=== PATIENT | female | born 1985 | race Caucasian/White ===

== ENCOUNTER 2021-01-09 16:06 | Emergency (ER) | payer OTHER, SELFPAY ==
[2021-01-09 16:07] VITALS: BP 132/86; PULSE 113; RESP 22; TEMP 36.8; O2SAT 96; BMI 46.2
--- NOTE | 2021-01-09 16:48 | EDS_ITS ---
HPI History of Present Illness Chief Complaint: Shortness of Breath Informant: patient and spouse/S.O. Onset/Context/Timing Onset: Weeks Context: sudden Timing: Continuous and Waxes and wanes Quality: Positive for Dyspnea on exertion Current Severity: Mild Maximum Severity: Moderate Worsened by: Exertion and Coughing; Not Worsened By Lying flat Relieved by: Nothing Associated Symptoms cough, fever, sore throat, chills and sweats Chest Pain: Positive for Tightness Narrative Narrative: Patient is a 35-year-old woman with no significant past medical history who had a positive Covid test at outside facility. Symptoms started 7 days ago. She complains of headache, photophobia, sore throat, loss of taste and smell, nonproductive cough, dyspnea and dyspnea on exertion. She also reports dry heaves. She states she has not eaten anything in 3 days. She also reports diarrhea. She has not noted blood or mucus in the diarrhea. She reports decreased urine output. She does report orthostatic symptoms. She also reports myalgias now status. She denies joint swelling. PE Risk Factors: Negative for Cancer, OCP + Smoking + > 35, Prior DVT or PE, Recent immobilization, Recent surgery and Recent travel Prior similar symptoms: No Recent Illness/Hospitalization: No PFSH PFSH no medical history Home Medications hydrocodone-homatropine [Hycodan (with homatropine)] 5 ml PO Q6H PRN 2 Days #30 ml 01/09/21 [Rx Last Taken Unknown] ondansetron 4 mg PO Q8H PRN PRN #10 tab 01/09/21 [Rx Last Taken Unknown] Allergy/AdvReac Type Severity Reaction Status Date / Time acetaminophen [From Percocet] Allergy Other Verified 01/09/21 16:07 oxycodone [From Percocet] Allergy Other Verified 01/09/21 16:07 no surgical history Social History (Updated 01/09/21 @ 16:[address] Darryl Augustin MD) household members: spouse Smoking Status: Never smoker alcohol intake: current alcohol intake frequency: holidays/special occasions only substance use type: does not use ROS ROS ED Constitutional Constitutional ED: Reports chills, fever(s) and sweats Eyes Eyes: Denies blurry vision, change in vision or diplopia ENT ENT ED: Reports rhinorrhea and sore throat; Denies ear pain Cardiovascular Cardiovascular: Reports chest pain; Denies orthopnea, palpitations, paroxysmal nocturnal dyspnea or racing heartbeat Respiratory/Chest Respiratory/Chest: Reports cough, dyspnea and dyspnea on exertion; Denies orthopnea, paroxysmal nocturnal dyspnea or sputum Gastrointestinal Gastrointestinal: Reports diarrhea, nausea and vomiting; Denies abdominal pain, constipation or melena Genitourinary Genitourinary ED: Reports other Details: Decreased urine output ; Denies dysuria, hematuria or urinary frequency Musculoskeletal Musculoskeletal: Reports arthralgias, back pain, myalgias and neck pain Integumentary Denies rash Neurologic Neurologic: Reports headache(s) and weakness; Denies paresthesias Psychiatric Psychiatric: Denies anxiety or depression Hematologic/Lymphatic Hematologic/Lymphatic: Denies easy bleeding or easy bruising EXAM Physical Exam Const Vital Signs: 01/09/21 16:07 01/09/21 17:06 Temperature 98.2 F Temperature Source Temporal Pulse Rate 113 H Respiratory Rate 22 H Respiratory Effort Normal Non-Labored Respiratory Depth Normal Respiratory Pattern Normal Blood Pressure 132/86 H Blood Pressure Mean 101 Pulse Ox 96 Oxygen Delivery Method Room Air Room Air Positive well nourished, well developed and obese General Appearance ED: well developed Nutritional Appearance: obese HEENT Reports TM's clear and dry mucous membranes HEENT Narrative: Uvula midline. Posterior pharynx no erythema or exudate. atraumatic Tympanic Membrane ED: Yes TM's clear Mouth ED: Yes dry mucous membranes Mouth: dry mucous membranes Eyes PERRL and EOMs intact bilaterally General Eye ED: Negative for pale conjunctiva or scleral icterus Neck no lymphadenopathy, supple and no meningeal signs General: tenderness Resp normal respiratory effort and clear to auscultation bilaterally Cardio regular rate, S1 normal heart sound, S2 normal heart sound and no murmurs Rate: tachycardic GI non-tender, non-distended and no masses Auscultation: normoactive bowel sounds Palpation: soft Back/Spine no CVA tenderness and normal to inspection Extremity normal to inspection General Extremety ED: Negative for edema or tenderness General Extremity: Negative for edema Neuro oriented x3, CN's II-XII intact bilaterally and no sensory deficits noted Sensorium / Orientation: alert Motor Exam: strength 5/5 throughout Psych mental status grossly normal Thought Process: normal thought process Skin no wounds Lesions: no lesions Rashes: no rashes MDM MDM MDM Narrative Medical decision making narrative: Patient has symptoms due to Covid. Clinically she is dehydrated. 1 L of normal saline was ordered. Zofran was ordered for her dry heaves. Imodium for diarrhea. Hycodan for her persistent nonproductive cough. Because she has not anything the eat in 3 days and only sips of water over the last 3 days with large static symptoms basic metabolic panel was obtained to assess renal function and electrolytes H&H to rule out anemia since she has dyspnea on exertion. Believe this to be most likely due to her Covid infection I did speak with patient regarding monoclonal therapy. She is interested. I informed her that I would assess to make sure she qualifies and if so will discuss in further detail Patient was reassessed at Lab Data Attestation: I reviewed the patient's lab results. Lab results narrative: Patient is neutropenic and consistent with Covid infection. ALT and AST are 2 times normal, this is insignificant. Labs: Laboratory Results - last 24 hr 01/09/21 01/09/21 17:00 17:00 WBC 4.2 L RBC 5.48 H Hgb 15.3 H Hct 48.1 H MCV 87.8 MCH 27.9 MCHC 31.8 L RDW Std Deviation 43.7 RDW Coeff of Rose Mary 13.4 Plt Count 185 MPV 9.7 Immature Gran % (Auto) 0.500 Neut % (Auto) 62.9 Lymph % (Auto) 30.0 [place] % (Auto) 5.9 Eos % (Auto) 0.2 Baso % (Auto) 0.5 Absolute Neuts (auto) 2.7 Absolute Lymphs (auto) 1.27 Nucleated RBC % 0 Sodium 137 Potassium 3.8 Chloride 101 Carbon Dioxide 29.0 Anion Gap 7 BUN 10 Creatinine 0.93 Estim Creat Clear Calc 96.51 Est GFR (MDRD) Af Amer 87 Est GFR (MDRD) Non-Af 72 BUN/Creatinine Ratio 10.7 Glucose 132 H Calcium 8.9 Total Bilirubin 0.60 AST 76 H ALT 105 H Alkaline Phosphatase 88 Total Protein 7.8 Albumin 3.4 Globulin 4.4 H Albumin/Globulin Ratio 0.8 L Rhythm Strip Rhythm Strip: Sinus Tach Rate: 111 Ectopy: None Discharge Plan Triage Chief Complaint: Shortness of Breath ED Provider: Darryl Augustin Dx/Rx/DC Orders Clinical Impression: Infection due to 2019-nCoV, Mild dehydration, Nausea vomiting and diarrhea Instructions: Coronavirus Disease 2019 (COVID-19): Caring for Yourself or Others Prescriptions: New ondansetron [ondansetron] 4 MG tablet 4 mg PO Q8H PRN PRN (Reason: Nausea) Qty: 10 RF: 0 hydrocodone-homatropine [Hycodan (with homatropine)] 5-1.5 mg/5 mL syrup 5 ml PO Q6H PRN (Reason: cough) 2 Days Qty: 30 RF: 0 Other Ambulatory Orders: COVID Outpatient Monoclonal Antibody Referral (Routine) Timeframe: 1 Day Location: None Selected Ordered By: Dr. Darryl Augustin Primary Care Provider: Care Physician,No Primary Referrals: Care Physician,No Primary [Primary Care Provider] - Activity Restrictions/Additional Instructions: Take Zofran for nausea and vomiting Take Imodium for diarrhea Hycodan is for cough Disposition Disposition: Home, Self Care
[2021-01-09 17:06] VITALS: O2SAT 98
[2021-01-09] MEDS: 0.9% Normal Saline 1,000 ML 1000 ML IV (17:08)
[2021-01-09] MEDS: Ondansetron 4 MG/2 ML Vial IV (17:09)
[2021-01-09] MEDS: Loperamide 2 MG Capsule 4 MG PO (17:09)
[2021-01-09 17:11] LABS: Absolute Lymphocyte Count 1.27 X10^3/uL (0.83-4.51); Absolute Neutrophil Count 2.7 X10^3/uL (2.0-7.7); Basophil# 0.02 X10^3/uL; Basophil% 0.5 % (0-1); Eosinophil# 0.01 X10^3/uL; Eosinophils% 0.2 % (0-5); Hematocrit 48.1 % (37-47); Hemoglobin 15.3 g/dL (12.0-15.0); Lymphocyte # 1.27 X10^3/ul (0.83-4.51); Mean Corp Hgb Conc 31.8 g/dL (32-36); Mean Corpuscular Hgb 27.9 pg (27.0-32.0); Mean Corpuscular Volume 87.8 fL (81-99); Mean Platelet Vol. 9.7 fl (6.2-12.0); Monocyte# 0.25 X10^3/uL; Monocyte% 5.9 % (0-10); NRBC Flagged by Analyzer 0 % (0-5); Neutrophil # 2.66 X10^3/uL (2.7-7.7); Neutrophil % 62.9 % (47-70); Platelet Count 185 K/mm3 (150-450); RBC Distribution Width CV 13.4 % (11.6-14.6); RBC Distribution Width SD 43.7 fl (35.1-43.9); Red Blood Count 5.48 M/mm3 (4.2-5.4); White Blood Count 4.2 K/mm3 (4.4-11.0)
[2021-01-09 17:35] LABS: ALB/GLOB Ratio 0.8 RATIO (0.9-2.4); AST(SGOT) 76 U/L (15-37); Alanine Aminotransfer ALT/SGPT 105 U/L (13-56); Albumin, Serum 3.4 g/dL (3.2-5.0); Alkaline Phosphatase 88 U/L (45-117); Anion Gap 7 (5-15); BUN 10 mg/dL (7-18); BUN/Creat Ratio 10.7 RATIO (10-20); Calcium,Total 8.9 mg/dL (8.5-10.1); Chloride 101 mmol/L (98-107); Creatinine, Serum 0.93 mg/dL (0.55-1.02); EST Glomerular Filtration Rate 72 mL/min (>60); Est Glom Filt Rate - Afr Amer 87 mL/min (>60); Estimated Creatinine Clearance 96.51 ml/min; Globulin 4.4 g/dL (2.2-4.2); Glucose 132 mg/dL (74-106); Potassium 3.8 mmol/L (3.5-5.1); Protein, Total 7.8 g/dL (6.4-8.2); Sodium Level 137 mmol/L (136-145)
[2021-01-09 18:00] VITALS: BP 115/51; PULSE 98; RESP 20; TEMP 38.3; O2SAT 94
== END 2021-01-09 18:33 | disposition home or self-care (01) ==
PROVIDERS: Emergency Provider Emergency Medicine
DX: U07.1 COVID-19 (principal); E86.0 Dehydration; R11.2 Nausea with vomiting, unspecified; R19.7 Diarrhea, unspecified; E66.9 Obesity, unspecified
CPT/HCPCS: 80053; 85025; 96374; 99283; J7030; J2405

== ENCOUNTER 2021-01-11 22:07 | Inpatient (IN) | payer OTHER, SELFPAY ==
[2021-01-11 22:08] VITALS: BP 152/87; PULSE 92; RESP 20; TEMP 37.2; O2SAT 91; BMI 33.9
--- NOTE | 2021-01-11 22:24 | EKG12_ITS ---
Test Reason : SOB Blood Pressure : / mmHG Vent. Rate : 087 BPM Atrial Rate : 087 BPM P-R Int : 140 ms QRS Dur : 076 ms QT Int : 346 ms P-R-T Axes : 012 038 049 degrees QTc Int : 416 ms Normal sinus rhythm Normal ECG Confirmed by STORMY COLLINS, STEVEN ([id number]), film or videotape editor RONY BUTLER ([id number]) on 01/15/2021 10:36:16 AM Referred By: Confirmed By:STEVEN BURROWS MD
--- NOTE | 2021-01-11 22:36 | RAD_ITS ---
INDICATION: CHATTERJEE, wheezing, COVID-19 positive EXAMINATION/TECHNIQUE: X-RAY - XR Chest 1 View COMPARISON: None. FINDINGS: Diffuse bilateral interstitial and airspace opacities. The cardiomediastinal silhouette is unremarkable. No pleural effusion or pneumothorax. No acute osseous abnormalities. RAD/Chest 1 View (Portable) IMPRESSION: Diffuse bilateral interstitial and airspace opacities consistent with Covid pneumonia. Electronically Signed: Jun Marks MD at 23:08 EDT Tel , Service support ,
[2021-01-11 22:49] VITALS: PULSE 94; RESP 17; O2SAT 93
[2021-01-11] MEDS: MethylPREDNISolone 125 MG/2 ML Vial IV (22:53)
[2021-01-11 22:59] LABS: Absolute Lymphocyte Count 2.28 X10^3/uL (0.83-4.51); Absolute Neutrophil Count 1.9 X10^3/uL (2.0-7.7); Basophil# 0.01 X10^3/uL; Basophil% 0.2 % (0-1); Eosinophil# 0.16 X10^3/uL; Eosinophils% 3.4 % (0-5); Hematocrit 45.1 % (37-47); Hemoglobin 14.2 g/dL (12.0-15.0); Lymphocyte # 2.28 X10^3/ul (0.83-4.51); Lymphocyte % 48.8 % (19-41); Mean Corp Hgb Conc 31.5 g/dL (32-36); Mean Corpuscular Volume 88.8 fL (81-99); Mean Platelet Vol. 10.2 fl (6.2-12.0); Monocyte% 6.4 % (0-10); NRBC Flagged by Analyzer 0 % (0-5); Neutrophil % 40.8 % (47-70); Platelet Count 189 K/mm3 (150-450); RBC Distribution Width CV 13.3 % (11.6-14.6); RBC Distribution Width SD 43.8 fl (35.1-43.9); Red Blood Count 5.08 M/mm3 (4.2-5.4); White Blood Count 4.7 K/mm3 (4.4-11.0)
--- NOTE | 2021-01-11 23:12 | ED.VIS.DYS ---
HPI History of Present Illness Chief Complaint: Shortness of Breath Detail of Chief Complaint: Increase shortness of breath, significant dyspnea on exertion and chest michael Informant: patient and spouse/S.O. Onset/Context/Timing Onset: Today (Dyspnea on exertion with painful breathing) and Days (Onset of illness 9 days ago) Context: gradual Timing: Continuous Quality: Positive for Dyspnea on exertion Current Severity: Mild Maximum Severity: Severe Worsened by: Exertion and Coughing; Not Worsened By Lying flat Relieved by: Nothing Associated Symptoms cough, fever, sore throat, chills and sweats Chest Pain: Positive for Pleuritic and Tightness Narrative Narrative: Patient is a 25-year-old who had onset of illness on January 02. She was seen on January 09. She was discharged since she did not meet admission criteria and referred for monoclonal antibody therapy. She presents today because of increased shortness of breath. She states she cannot take more than 5 steps without gasping for breath. She does complain of pain with breathing that is pleuritic. She denies history of VTE. Denies leg pain, swelling discoloration. She does report mild headache. She denies change in voice. She denies GI symptoms. Her other symptoms that were noted on January 09 have improved with the exception of the breathing. PE Risk Factors: Negative for Cancer, OCP + Smoking + > 35, Prior DVT or PE, Recent immobilization, Recent surgery and Recent travel Prior similar symptoms: Yes Recent Illness/Hospitalization: No PFSH PFSH Home Medications lamotrigine 200 mg PO QHS 01/11/21 [History Last Taken Unknown] levonorgestrel-ethinyl estrad 1 tab PO DAILY 01/11/21 [History Last Taken Unknown] Allergy/AdvReac Type Severity Reaction Status Date / Time acetaminophen [From Percocet] Allergy Other Verified 01/11/21 22:10 oxycodone [From Percocet] Allergy Other Verified 01/11/21 22:10 Surgical History History of appendectomy Social History household members: spouse Smoking Status: Never smoker alcohol intake: current alcohol intake frequency: holidays/special occasions only substance use type: does not use ROS ROS ED Constitutional Constitutional ED: Reports chills, fever(s) and sweats; Denies weight loss Eyes Eyes: Denies blurry vision, change in vision or other ENT ENT ED: Reports rhinorrhea and sore throat; Denies ear pain Cardiovascular Cardiovascular: Reports chest pain; Denies orthopnea, palpitations or paroxysmal nocturnal dyspnea Respiratory/Chest Respiratory/Chest: Reports cough, dyspnea and dyspnea on exertion; Denies orthopnea or paroxysmal nocturnal dyspnea Gastrointestinal Gastrointestinal: Reports nausea; Denies abdominal pain, diarrhea or vomiting Genitourinary Genitourinary ED: Denies dysuria, hematuria or urinary frequency Musculoskeletal Musculoskeletal: Reports arthralgias and myalgias Integumentary Denies rash Neurologic Neurologic: Reports weakness; Denies headache(s) or paresthesias Hematologic/Lymphatic Hematologic/Lymphatic: Denies easy bleeding or easy bruising EXAM Physical Exam Const Vital Signs: 01/11/21 22:08 01/11/21 22:49 01/11/21 22:53 Temperature 99 F Temperature Source Temporal Pulse Rate 92 94 Respiratory Rate 20 H 17 Respiratory Effort Normal Non-Labored Respiratory Depth Normal Respiratory Pattern Normal Blood Pressure 152/87 H Blood Pressure Mean 108 Pulse Ox 91 93 Oxygen Delivery Method Room Air Room Air 01/12/21 00:20 Temperature Temperature Source Pulse Rate Respiratory Rate Respiratory Effort Respiratory Depth Respiratory Pattern Blood Pressure Blood Pressure Mean Pulse Ox 92 Oxygen Delivery Method Positive well nourished and well developed General Appearance ED: well developed and other Patient is tachypneic. She is breathing much more rapidly than 20 times that was documented by triage nurse. HEENT Reports TM's clear and moist mucous membranes HEENT Narrative: Head is normocephalic. Ears are normal. Nares patent. atraumatic Tympanic Membrane ED: Yes TM's clear Eyes PERRL and EOMs intact bilaterally General Eye ED: Negative for pale conjunctiva or scleral icterus Neck no lymphadenopathy, supple and no meningeal signs Neck Narrative: Trachea is midline. There is no in-store expiratory stridor. Resp No normal respiratory effort and No clear to auscultation bilaterally Effort and Inspection: Negative for pain with movement Auscultation: rales bilateral lower and diminished lung sounds Cardio regular rate, regular rhythm, S1 normal heart sound and no murmurs GI non-tender, non-distended and no masses Auscultation: normoactive bowel sounds Palpation: soft Back/Spine no CVA tenderness and normal to inspection Extremity normal to inspection General Extremety ED: Negative for edema or tenderness General Extremity: Negative for edema Neuro oriented x3, CN's II-XII intact bilaterally and no sensory deficits noted Su Coma Scale: document GCS findings Spontaneous Obeys Commands Oriented 15 Sensorium / Orientation: alert Speech: speech normal Motor Exam: strength 5/5 throughout Psych mental status grossly normal Thought Process: normal thought process Skin no wounds Lesions: no lesions Rashes: no rashes MDM MDM MDM Narrative Medical decision making narrative: Clinically patient has bilateral Covid pneumonia. Because of the pleuritic pain and worsening shortness of breath need to consider pulmonary embolus. D-dimer was obtained. If D-dimer is elevated will obtain a CTA. CBC was obtained to assess for anemia. BMP to assess for renal dysfunction. Patient's chest x-ray is consistent with Covid pneumonia. Since she does complain of pleuritic chest pain elevated D-dimer CTA was obtained to evaluate for PE since Covid can cause hypercoagulable state and pulmonary embolus. Patient desaturated walking in the room. The nurse states her breathing became quite labored and she was shoveling. Heart rate also increased. Sat dropped to 88% after just walking in the room. In light of this hospitalist has been called for admission Lab Data Attestation: I reviewed the patient's lab results. Lab results narrative: See is elevated from prior. Concern patient may have CO2 retention. VBG was obtained. pH is 7.39, PCO2 is 47.3, P O2 is 31.6 and bicarb is 29.0. Base excess is 4.1. This does not indicate respiratory failure with hypercapnia as the cause of her elevated CO2. Labs: Laboratory Results - last 24 hr 01/11/21 01/11/21 01/11/21 22:40 22:40 22:40 WBC 4.7 RBC 5.08 Hgb 14.2 Hct 45.1 MCV 88.8 MCH 28.0 MCHC 31.5 L RDW Std Deviation 43.8 RDW Coeff of [place] 13.3 Plt Count 189 MPV 10.2 Immature Gran % (Auto) 0.400 Neut % (Auto) 40.8 L Lymph % (Auto) 48.8 H [place] % (Auto) 6.4 Eos % (Auto) 3.4 Baso % (Auto) 0.2 Absolute Neuts (auto) 1.9 L Absolute Lymphs (auto) 2.28 Nucleated RBC % 0 D-Dimer Quant (PE/DVT) 0.79 H* Sodium 138 Potassium 3.7 Chloride 102 Carbon Dioxide 33.0 H Anion Gap 3 L BUN 13 Creatinine 0.85 Estim Creat Clear Calc 105.59 Est GFR (MDRD) Af Amer 97 Est GFR (MDRD) Non-Af 80 BUN/Creatinine Ratio 15.2 Glucose 125 H Calcium 8.8 ABG Data ABG results: ABG 01/12/21 00:07 Specimen Type MEIR VBG pH 7.40 VBG pO2 32 VBG HCO3 29 H VBG Total CO2 31 VBG O2 Sat (Calc) 60 VBG Base Excess 4 H POC Mix VBG pCO2 Pt Tmp 47.3 O2 Delivery Device Room Air Radiography Chest X-Ray - ED: 1 View, Read by ED Physician, Heart, Lungs (Bilateral interstitial infiltrates consistent with Covid pneumonia) and Mediastinum Diagnostic Testing: Radiology Impression Chest X-Ray 01/11/21 22:36 IMPRESSION: Diffuse bilateral interstitial and airspace opacities consistent with Covid pneumonia. Electronically Signed: Jun Marks MD at 23:08 EDT Tel , Service support , Chest CTA 01/11/21 23:26 IMPRESSION: Suboptimal opacification of the pulmonary arteries. There is no central or hilar pulmonary embolism, but the primary segmental and secondary subsegmental branches cannot be evaluated. If symptomatology persists, either a repeat study or V/Q scan should be considered. Pulmonary findings consistent with Covid pneumonia. Associated adenopathy. Recommend follow-up to resolution. Individualized dose optimization techniques were used for this CT. at 0030 Reported and signed by: Vignesh Dinero MD Electronically Signed: Vignesh Dinero MD at 0:29 EDT Tel , Service support , Rhythm Strip Rhythm Strip: Sinus Rhythm Rate: 86 Ectopy: None EKG Initial EKG: Attestation: I personally reviewed and interpreted this EKG as follows: Interpretation: Sinus Rhythm (EKG is normal. Normal sinus rhythm ventricular rate of 87. IN interval 140 ms. QS duration 76 ms. QT duration 3 and 46 ms. [place] is normal.) Treatment and Re-Evaluation Comments:: Since patient is not hypoxic and there is no evidence of pulmonary embolus plan is to discharge to home if patient is able to ambulate without desaturating. Monoclonal antibody therapy was ordered on prior visit. Discharge Plan Triage Chief Complaint: Shortness of Breath ED Provider: Darryl Augustin Dx/Rx/DC Orders Clinical Impression: Pneumonia due to 2019-nCoV, Acute respiratory failure with hypoxia Prescriptions: No Action lamotrigine 200 mg Tablet 200 mg PO QHS RF: 0 levonorgestrel-ethinyl estrad 0.1-20 mg-mcg tablet 1 tab PO DAILY RF: 0 Primary Care Provider: Care Physician,No Primary Referrals: Care Physician,No Primary [Primary Care Provider] - Disposition Disposition: Acute Care Hospital [facility]
[2021-01-11 23:15] LABS: Anion Gap 3 (5-15); BUN 13 mg/dL (7-18); BUN/Creat Ratio 15.2 RATIO (10-20); Calcium,Total 8.8 mg/dL (8.5-10.1); Chloride 102 mmol/L (98-107); Creatinine, Serum 0.85 mg/dL (0.55-1.02); EST Glomerular Filtration Rate 80 mL/min (>60); Est Glom Filt Rate - Afr Amer 97 mL/min (>60); Estimated Creatinine Clearance 105.59 ml/min; Glucose 125 mg/dL (74-106); Potassium 3.7 mmol/L (3.5-5.1); Sodium Level 138 mmol/L (136-145)
[2021-01-11 23:21] LABS: D-Dimer Quantitative (DVT/PE) 0.79 FEU/ug/m (0.27-0.49)
--- NOTE | 2021-01-11 23:26 | CT_ITS ---
HISTORY: Pleuritic chest pain, elevated D-dimer, Covid positive. EXAMINATION: CTA Chest WO/W Contrast Injection TECHNIQUE: Helically acquired images were obtained of the chest following IV contrast as per pulmonary angiogram protocol with 3D reconstructions. A radiation dose optimization technique was used for this scan. IV Contrast dosage and agent: 100mL [id number] COMPARISON: None FINDINGS: LUNGS, PLEURA AND LARGE AIRWAYS: Extensive bilateral ground glass and alveolar airspace opacities with scattered small areas of confluence. No pleural effusions THYROID: No thyroid lesions. PULMONARY ARTERIES: There is suboptimal opacification of the pulmonary arteries. There is no central or hilar pulmonary embolism. Segmental branch pulmonary embolism cannot be excluded. AORTA AND GREAT VESSELS: Normal in caliber. No evidence of dissection. HEART AND PERICARDIUM: Heart size is normal. No pericardial effusion. No signs of right heart strain. MEDIASTINUM AND [place]: Mediastinal and right hilar hilar adenopathy. Esophagus is unremarkable. No hiatal hernia. UPPER ABDOMEN: Diffuse hepatic steatosis. BONES: No acute or aggressive abnormality. CT/CTA Chest W/WO Contrast IMPRESSION: Suboptimal opacification of the pulmonary arteries. There is no central or hilar pulmonary embolism, but the primary segmental and secondary subsegmental branches cannot be evaluated. If symptomatology persists, either a repeat study or V/Q scan should be considered. Pulmonary findings consistent with Covid pneumonia. Associated adenopathy. Recommend follow-up to resolution. Individualized dose optimization techniques were used for this CT. at 0030 Reported and signed by: Vignesh Dinero MD Electronically Signed: Vignesh Dinero MD at 0:29 EDT Tel , Service support ,
[2021-01-12] VITALS (10 sets, daily range): BP systolic 136–145; BP diastolic 68–90; PULSE 81–97; RESP 18–20; TEMP 36.6–36.9; O2SAT 92–96; BMI 46.8
[2021-01-12 00:11] LABS: Blood Gas Specimen Type VEN; O2 Delivery Device Room Air; VBG BASE EXCESS 4 mmol/L (-1.0-3.5); VBG Bicarbonate 29 mmol/L (22-26); VBG PO2 32 mmHg (25-40); VBG SO2 60 % (50-70); VBG TCO2 31 mmol/L (23-33); VBG pCO2 47.3 mmHg (41-51)
--- NOTE | 2021-01-12 01:43 | HP.PCM.HOS_ITS ---
HPI - General General Date of Admission: 01/12/21 Date of Service: 01/12/21 Chief Complaint: Dyspnea, cough, worsening with COVID diagnosis. HPI Narrative The patient is a 35 y/o F w/ PMHx: Obesity, recent ED evaluation 01/09/21 with history of positive Covid testing on 01/03/21 at [facility] with Covid type symptoms starting originally on 01/02/21 with headaches, sore throat, decree sense of taste and smell, dry cough, dyspnea, nausea, emesis, poor oral intake, loose stools, lightheadedness, body aches administered 1 L normal saline at that time as well as Zofran and Imodium in addition to Hycodan discharged with referral for monoclonal therapy but she did not get in who now represents to the [facility] ED on 01/12/21 with history of worsening debility, inability to walk > 5 steps without becoming notably dyspneic with pleuritic chest pain prompting ED return. Work-up in the ED included T 99, heart rate 94, BP 152/87, respiratory rate 20, 91 to 93% on room air at rest-->drops to 88% walking in the room with notable tachycardia concurrently, CBC with WC 4.7, hemoglobin 14.2, platelet 189 with neutropenia, D-dimer 0.79, VBG with pH 7.40, PO2 32, bicarb 29, O2 60% on room air, BMP with carbon oxide 33, glucose 125 otherwise not marked appearing, chest x-ray with bilateral diffuse interstitial and airspace opacities consistent with Covid pneumonia, CTPA with suboptimal opacification of pulmonary arteries with no obvious central or hilar pulmonary embolism but primary segmental and secondary subsegmental branches cannot be evaluated, pulmonary findings consistent with Covid pneumonia with associated adenopathy. [facility] Medical History (Updated 01/12/21 @ 02:[address] Ofelia Mcguire MD) Bipolar disorder Obesity Home Medications lamotrigine 200 mg PO QHS 01/11/21 [History Last Taken Unknown] levonorgestrel-ethinyl estrad 1 tab PO DAILY 01/11/21 [History Last Taken Unknown] Allergy/AdvReac Type Severity Reaction Status Date / Time acetaminophen [From Percocet] Allergy Other Verified 01/11/21 22:10 oxycodone [From Percocet] Allergy Other Verified 01/11/21 22:10 Family History (Updated 01/12/21 @ 02:[address] Ofelia Mcguire MD) Mother Heart disease Hypertension Cancer Skin and thyroid CA. HLD (hyperlipidemia) Father HLD (hyperlipidemia) Hypertension Heart disease Diabetes Surgical History (Updated 01/12/21 @ 02:[address] Ofelia Mcguire MD) History of appendectomy History of back surgery S/P arthroscopic surgery of left knee Social History household members: spouse Smoking Status: Never smoker alcohol intake: current alcohol intake frequency: holidays/special occasions only substance use type: does not use ROS ROS Narrative Admission Review of Systems: CONSTITUTIONAL: No weight loss, + fever, chills, weakness or fatigue. HEENT: + DEY, decreased taste/smell, congestion. Eyes: No visual loss, blurred vision, double vision or yellow sclerae. Ears, Nose, Throat: No hearing loss, sneezing, runny nose or sore throat. SKIN: No rash or itching, lesions, wounds. CARDIOVASCULAR: + chest pain, No edema, orthopnea, syncopal events. RESPIRATORY: + shortness of breath, cough without marked sputum, No wheezing, hemoptysis. GASTROINTESTINAL: + anorexia, nausea with vomiting, diarrhea, abdominal pain, No melena, BRBPR. GENITOURINARY: No dysuria, frequency, urgency or retention. NEUROLOGICAL: + headache, No dizziness, syncope, paralysis, ataxia, numbness or tingling in the extremities, focal weakness, change in bowel or bladder control, seizure. MUSCULOSKELETAL: + muscle, back pain, joint pain or stiffness. HEMATOLOGIC: No anemia, bleeding or bruising. LYMPHATICS: No enlarged nodes. No history of splenectomy. PSYCHIATRIC: + history of depression or anxiety. ENDOCRINOLOGIC: No reports of sweating, cold or heat intolerance. No polyuria or polydipsia. ALLERGIES: No history of asthma, hives, eczema or rhinitis. Vital Signs Vital Signs Vital Signs: 01/11/21 22:08 01/11/21 22:49 01/11/21 22:53 Temperature 99 F Temperature Source Temporal Pulse Rate 92 94 Respiratory Rate 20 H 17 Respiratory Effort Normal Non-Labored Respiratory Depth Normal Respiratory Pattern Normal Blood Pressure 152/87 H Blood Pressure Mean 108 Pulse Ox 91 93 Oxygen Delivery Method Room Air Room Air 01/12/21 00:20 Temperature Temperature Source Pulse Rate Respiratory Rate Respiratory Effort Respiratory Depth Respiratory Pattern Blood Pressure Blood Pressure Mean Pulse Ox 92 Oxygen Delivery Method Weight Weight: 250 lb Body Mass Index (BMI) 33.9 Physical Exam Narrative Physical Examination: General: Awake, alert, oriented x 3 and cooperative, seated upright in the ED bed in no apparent distress, fatigued appearing. Skin: Normal color, normal turgor, no icterus, no cyanosis. HEENT: AT/NC, EOMI, PERRLA, moderately dry MM, no carotid bruits or JVD noted. Lungs: Diffusely diminished, greater bases, decreased effort, coughing elicited with deep inspiratory attempts, no rales, ronchi or wheezing. Heart: Mildly tachycardic with regular rhythm; no gallop, rub audible. Abdomen: Soft, obese NTTP, no obvious distention, distant mildly hyperactive BS, no obvious HSM however habitus makes examination difficult. Extremities: No cyanosis, clubbing, or edema. Neurological: Patient awake, alert, oriented as noted, cognitive function intact; pupils equally reactive to light and accommodation, cranial nerves II- XII grossly normal, moving all 4 extremities, no focal deficits, strength moderately to severely global decrease secondary to acute presentation. Psychiatric: Affect appears fatigued, ill-appearing, no acute evidence of depressive or anxiety feelings. Results Lab / Micro Data Result Diagrams: 01/11/21 22:40 01/11/21 22:40 Labs: Laboratory Results - last 24 hr 01/11/21 22:40: WBC 4.7, RBC 5.08, Hgb 14.2, Hct 45.1, MCV 88.8, MCH 28.0, MCHC 31.5 L, RDW Std Deviation 43.8, RDW Coeff of Rose Mary 13.3, Plt Count 189, MPV 10.2, Immature Gran % (Auto) 0.400, Neut % (Auto) 40.8 L, Lymph % (Auto) 48.8 H, Hamlin % (Auto) 6.4, Eos % (Auto) 3.4, Baso % (Auto) 0.2, Absolute Neuts (auto) 1.9 L, Absolute Lymphs (auto) 2.28, Nucleated RBC % 0 01/11/21 22:40: D-Dimer Quant (PE/DVT) 0.79 H* 01/11/21 22:40: Sodium 138, Potassium 3.7, Chloride 102, Carbon Dioxide 33.0 H, Anion Gap 3 L, BUN 13, Creatinine 0.85, Estim Creat Clear Calc 105.59, Est GFR (MDRD) Af Amer 97, Est GFR (MDRD) Non-Af 80, BUN/Creatinine Ratio 15.2, Glucose 125 H, Calcium 8.8 ABG Data ABG results: ABG 01/12/21 00:07 Specimen Type MEIR VBG pH 7.40 VBG pO2 32 VBG HCO3 29 H VBG Total CO2 31 VBG O2 Sat (Calc) 60 VBG Base Excess 4 H POC Mix VBG pCO2 Pt Tmp 47.3 O2 Delivery Device Room Air Rhythm Strip Rhythm Strip: Sinus Rhythm Rate: 86 Ectopy: None Radiology Impression Chest X-Ray 01/11/21 22:36 IMPRESSION: Diffuse bilateral interstitial and airspace opacities consistent with Covid pneumonia. Electronically Signed: Jun Marks MD at 23:08 EDT Tel , Service support , Chest CTA 01/11/21 23:26 IMPRESSION: Suboptimal opacification of the pulmonary arteries. There is no central or hilar pulmonary embolism, but the primary segmental and secondary subsegmental branches cannot be evaluated. If symptomatology persists, either a repeat study or V/Q scan should be considered. Pulmonary findings consistent with Covid pneumonia. Associated adenopathy. Recommend follow-up to resolution. Individualized dose optimization techniques were used for this CT. at 0030 Reported and signed by: Vignesh Dinero MD Electronically Signed: Vignesh Dinero MD at 0:29 EDT Tel , Service support , Assessment & Plan Assessment/Plan (1) Pneumonia due to 2019-nCoV: (2) Hypoxia: PLAN: The patient is a 35 y/o F w/ PMHx: Obesity, recent ED evaluation 01/09/21 with history of positive Covid testing on 01/03/21 at [facility] with Covid type symptoms starting originally on 01/02/21 with referral for monoclonal therapy but she did not get in who now represents to the [facility] ED on 01/12/21 with history of worsening debility, inability to walk > 5 steps without becoming notably dyspneic with pleuritic chest pain prompting ED return. 1. Acute Hypoxia secondary to Bilateral Pneumonia secondary to Acute Viral Syndrome, COVID-19: Will admit to MS telemetry, maintain COVID precautions, will maintain on oxygen with wean as tolerated to room air, PRN albuterol, HOB, IS parameters w/ pending sputum cultures, respiratory viral panel and urine antigens, will obtain procalcitonin, CRP, CPK, Ferritin, LDH, trop and BNP, continue supportive care including q 2 hour turning including prone given no pro ne bed availability and judicious hydration, closely monitor for worsening status for ARDS and multiorgan failure, will initiate and continue IV decadron x 10 doses, given presentation and timeline appears to be within 10 day range therefore will also initiate IV remdesivir but defer to discretion of Infectious disease. 2. Bipolar disorder: We will continue patient home lamotrigine regimen. Enc ourage continue outpatient follow-up with psychology/psychiatry especially given #1. 3. Obesity: Weight loss and lifestyle changes encouraged. 4. DVT prophylaxis: SCDs, Lovenox. Charges/Coding Visit Charges Inpatient E&M: 80081 Init Hosp L3
[2021-01-12 02:26] LABS: AST(SGOT) 37 U/L (15-37); Alanine Aminotransfer ALT/SGPT 71 U/L (13-56); Albumin, Serum 3.2 g/dL (3.2-5.0); Alkaline Phosphatase 87 U/L (45-117); Bilirubin, Direct 0.18 mg/dL (0.00-0.30); Ferritin 288 ng/mL (8-252); Globulin 4.5 g/dL (2.2-4.2); LDH 284 U/L (84-246); Magnesium 2.2 mg/dL (1.6-2.6); Phosphorus 2.7 mg/dL (2.5-4.9); Protein, Total 7.7 g/dL (6.4-8.2)
[2021-01-12 02:36] LABS: BNP,B-Type NATRIURETIC PEPTIDE 10.3 pg/mL (0-100)
[2021-01-12 02:59] LABS: Procalcitonin < 0.04 ng/mL (0.00-0.09)
[2021-01-12] MEDS: 0.9% Normal Saline 1,000 ML 100 ML IV ×3 (03:11→21:37)
--- NOTE | 2021-01-12 07:42 | PN.HOSP_ITS ---
Subjective Subjective Patient admitted with dyspnea, pleuritic chest pain, hypoxia. Tested positive of COVID-19 on 01/03 in [facility]. Symptoms started on 01/02. Has symptoms of loss of taste and smell and nausea. Patient also on contraceptive pills for contraceptive purposes but not for dysfunctional uterine bleeding Objective Data Objective Data Vital Signs: Vital Signs Temp Pulse Resp BP Pulse Ox 98.3 F 97 20 H 137/90 H 94 01/12/21 03:14 01/12/21 03:15 01/12/21 03:14 01/12/21 03:14 01/12/21 03:14 Oxygen Delivery Method Room Air Weight: 345 lb 10.957 oz Body Mass Index (BMI) 46.8 Intake & Output: Intake and Output for Last 24 Hours 01/10/21 01/11/21 01/12/21 23:59 23:59 23:59 Intake Total 1251.67 / 1251.67 Balance 1251.67 / 1251.67 Lab / Micro Data Result Diagrams: 01/12/21 07:05 01/12/21 07:05 Labs: Laboratory Results - last 24 hr 01/11/21 22:40: WBC 4.7, RBC 5.08, Hgb 14.2, Hct 45.1, MCV 88.8, MCH 28.0, MCHC 31.5 L, RDW Std Deviation 43.8, RDW Coeff of Rose Mary 13.3, Plt Count 189, MPV 10.2, Immature Gran % (Auto) 0.400, Neut % (Auto) 40.8 L, Lymph % (Auto) 48.8 H, Sioux % (Auto) 6.4, Eos % (Auto) 3.4, Baso % (Auto) 0.2, Absolute Neuts (auto) 1.9 L, Absolute Lymphs (auto) 2.28, Nucleated RBC % 0 01/11/21 22:40: D-Dimer Quant (PE/DVT) 0.79 H* 01/11/21 22:40: Sodium 138, Potassium 3.7, Chloride 102, Carbon Dioxide 33.0 H, Anion Gap 3 L, BUN 13, Creatinine 0.85, Estim Creat Clear Calc 105.59, Est GFR (MDRD) Af Amer 97, Est GFR (MDRD) Non-Af 80, BUN/Creatinine Ratio 15.2, Glucose 125 H, Calcium 8.8 01/11/21 22:40: Phosphorus 2.7, Magnesium 2.2, Ferritin 288 H, Total Bilirubin 0.40, Direct Bilirubin 0.18, AST 37, ALT 71 H, Alkaline Phosphatase 87, Lactate Dehydrogenase 284 H, C-React Prot Ext Range 14.60 H, Total Protein 7.7, Albumin 3.2, Globulin 4.5 H 01/11/21 22:40: B-Natriuretic Peptide 10.3 01/11/21 22:40: Procalcitonin < 0.04 Micro: Microbiology 01/12/21 04:00 Urine, Clean Catch Legionella Antigen - Final 01/12/21 04:00 Urine, Clean Catch Streptococcus pneumoniae Antigen (M - Final ABG Data ABG results: ABG 01/12/21 00:07 Specimen Type MEIR VBG pH 7.40 VBG pO2 32 VBG HCO3 29 H VBG Total CO2 31 VBG O2 Sat (Calc) 60 VBG Base Excess 4 H POC Mix VBG pCO2 Pt Tmp 47.3 O2 Delivery Device Room Air Radiography Diagnostic Testing: Radiology Impression Chest X-Ray 01/11/21 22:36 IMPRESSION: Diffuse bilateral interstitial and airspace opacities consistent with Covid pneumonia. Electronically Signed: Jun Marks MD at 23:08 EDT Tel , Service support , Chest CTA 01/11/21 23:26 IMPRESSION: Suboptimal opacification of the pulmonary arteries. There is no central or hilar pulmonary embolism, but the primary segmental and secondary subsegmental branches cannot be evaluated. If symptomatology persists, either a repeat study or V/Q scan should be considered. Pulmonary findings consistent with Covid pneumonia. Associated adenopathy. Recommend follow-up to resolution. Individualized dose optimization techniques were used for this CT. at 0030 Reported and signed by: Vignesh Dinero MD Electronically Signed: Vignesh Dinero MD at 0:29 EDT Tel , Service support , Rhythm Strip Rhythm Strip: Sinus Rhythm Rate: 86 Ectopy: None Physical Exam Narrative Physical exam General: Alert, Oriented x3, Cooperative HEENT: Atraumatic, PERRLA, EOMI, Normocephalic Oral: No Gingival or Mucosal Lesions/ Ulcerations Neck: Supple, No JVD, Negative Carotid Bruits Lungs: Air entry diminished in bilateral lung bases. Bilateral expiratory cr epitations. Cardiovascular: Regular rate, Regular Rhythm, Normal S1, Normal S2, No murmurs Abdomen: Bowel Sounds Present, Soft, Non Tender, Non-Distended : No renal angle tenderness. No suprapubic tenderness. Extremities: No edema, Capillary Refill Less than 3 Seconds Skin: No rashes, No breakdown Musculoskeletal: No Tenderness to Palpation of Joints or Extremities Neurological: Cranial nerves II-XII grossly intact, DTR 2+/4 and Symmetrical, Neuro grossly intact Psych/Mental Status: Normal Affect, Appropriate. Assessment & Plan Assessment/Plan (1) Pneumonia due to 2019-nCoV: (2) Hypoxia: PLAN: The patient is a 35 y/o F with positive Covid test on 01/03/2021 at [facility] and symptoms since 01/02 admitted for shortness of breath and pleuritic chest pain. 1. Acute Hypoxia secondary to Bilateral Pneumonia secondary to COVID-19: Patient admitted to MS telemetry. Oxygen therapy. IV Decadron and remdesivir. ID consult reviewed and appreciated. On supportive treatment. Inflammatory markers CRP, ferritin, LDH and D-dimer elevated. Procalcitonin normal. VBG 7.40/mixed venous PCO2 47. I advised to complete the cycle of oral contraceptive pills and hold for next 2 cycles to prevent blood clot as OCPs are hypercoagulable. 2. Bipolar disorder: continue patient home lamotrigine regimen. 3. Obesity: Weight loss and lifestyle changes encouraged. 4. DVT prophylaxis: SCDs, Lovenox. Charges/Coding Visit Charges Inpatient E&M: 14221 Subs Hosp L2
[2021-01-12 07:48] LABS: Absolute Lymphocyte Count 0.62 X10^3/uL (0.83-4.51); Absolute Neutrophil Count 2.8 X10^3/uL (2.0-7.7); Basophil# 0.01 X10^3/uL; Basophil% 0.3 % (0-1); Hematocrit 43.7 % (37-47); Hemoglobin 13.8 g/dL (12.0-15.0); Lymphocyte # 0.62 X10^3/ul (0.83-4.51); Lymphocyte % 17.3 % (19-41); Mean Corp Hgb Conc 31.6 g/dL (32-36); Mean Corpuscular Volume 88.6 fL (81-99); Mean Platelet Vol. 10.3 fl (6.2-12.0); Monocyte# 0.08 X10^3/uL; Monocyte% 2.2 % (0-10); NRBC Flagged by Analyzer 0 % (0-5); Neutrophil # 2.84 X10^3/uL (2.7-7.7); Neutrophil % 79.4 % (47-70); POSITIVE MORPHOLOGY YES; Platelet Count 218 K/mm3 (150-450); RBC Distribution Width CV 13.2 % (11.6-14.6); RBC Distribution Width SD 43.2 fl (35.1-43.9); Red Blood Count 4.93 M/mm3 (4.2-5.4); White Blood Count 3.6 K/mm3 (4.4-11.0)
[2021-01-12 07:50] LABS: Differential Indicated SCAN CRITERIA MET
[2021-01-12 08:43] LABS: ALB/GLOB Ratio 0.7 RATIO (0.9-2.4); AST(SGOT) 40 U/L (15-37); Alanine Aminotransfer ALT/SGPT 70 U/L (13-56); Alkaline Phosphatase 85 U/L (45-117); Anion Gap 8 (5-15); BUN 9 mg/dL (7-18); BUN/Creat Ratio 9.5 RATIO (10-20); Calcium,Total 8.5 mg/dL (8.5-10.1); Chloride 103 mmol/L (98-107); Creatinine, Serum 0.95 mg/dL (0.55-1.02); EST Glomerular Filtration Rate 71 mL/min (>60); Est Glom Filt Rate - Afr Amer 86 mL/min (>60); Estimated Creatinine Clearance 94.47 ml/min; Globulin 4.3 g/dL (2.2-4.2); Glucose 234 mg/dL (74-106); Potassium 4.5 mmol/L (3.5-5.1); Protein, Total 7.3 g/dL (6.4-8.2); Sodium Level 137 mmol/L (136-145)
[2021-01-12] MEDS: dexAMETHasone 10 MG/ML Vial 6 MG IV (10:43)
[2021-01-12] MEDS: Famotidine 20 MG Tablet PO ×2 (10:44→21:39)
[2021-01-12] MEDS: Enoxaparin 40 MG/0.4 ML Syringe 30 MG SC ×2 (10:44→21:39)
--- NOTE | 2021-01-12 11:08 | NURSING ---
fresh ice water and fan obtained for pt comfort pt becomes sl. winded/exhausted just walking to BR-recovers in bed w/ o2 on within 2-3 minutes
--- NOTE | 2021-01-12 11:40 | CASEMGMT ---
ROGER WINN Assessment: Face to Face with pt for initial transition planning/care coordination assessment. ROGER WINN introduced self and role at [facility], pt voices understanding and consents to assessment. Pt is A/O x4 and answers all questions appropriately at this time. Pt sitting up in bed with O2 on in no distress. Care providers, pharmacy, and demographics verified/updated. Admitting Dx: Covid PNA, hypoxia PCP:Pt states she does not have a PCP. She just moved to the area 6 mos ago. Pt provided with a local healthcare directory. Specialists: Pain management in [place] at the [facility]. Preferred Pharmacy: [facility] [place] Insurance: MMO Prescription Benefit: yes LW/HPOA: Pt denies having a LW/DPOA or need for info regarding. LNOK: Raymon Cowan, Living Arrangements: Pt lives with in a 2 story condo with 2 steps to enter. Pt bedroom and bathroom is on the second floor. Pt reports being I in ADL's and denies concerns at home. Transportation: Pt drives self and denies concerns with transportation. DME/HHC/SNF: Pt denies having any DME or previous HHC. Pt works emergency department. Pt states she was tested at [facility] in [place] on 01/03/21. She does not have a separate bedroom or bathroom that she can use to quarantine from her . She states he is quarantining due to her being positive. He is able to wear a mask when in the home with the patient. She states family has and is able to bring supplies and groceries. Pt provided with a local in network list of DME companies, pt chose [employer] should she need home O2. Green sheet on chart in case pt is dc'd this weekend. Pt states no concerns with going home at time of dc. Pt states no further concerns/needs. CM to follow. Advised pt to ask CM if any further question/concerns/needs arise, voices understanding. Pt Goal: Home Plan: Home
--- NOTE | 2021-01-12 13:53 | CON.PCM.ID_ITS ---
Assessment & Plan Assessment/Plan (1) Pneumonia due to 2019-nCoV: PLAN: Sx started 01/02, plan on 20 days of quarantine. On O2 here, started on remdesivir and 10 day course of dex. CT showed no PE. On lovenox intermed iate dose. Recommend vaccination once she is out of quarantine. Will follow, thank you (2) Hypoxia: HPI Consult Data Date of Consult: 01/12/21 HPI Narrative HPI Narrative: FELICIA GUTIERREZ, is a 35 F who presented overnight with sx since 01/02 with fever, chills, headache, change in taste/smell, cough/SOB, n/v/d, muscle aches. was sick before her, is improving. Came to ED with worsening dyspnea. Unvaccinated. Admitted on dex and remdesivir, not feeling much better yet. Full ROS performed and neg except as noted above. [facility] Medical History Bipolar disorder Chronic pain Obesity Home Medications lamotrigine 200 mg PO QHS 01/11/21 [History Last Taken 01/10/21] levonorgestrel-ethinyl estrad 1 tab PO DAILY 01/11/21 [History Last Taken 01/11/21] Allergy/AdvReac Type Severity Reaction Status Date / Time acetaminophen [From Percocet] Allergy Other Verified 01/11/21 22:10 oxycodone [From Percocet] Allergy Other Verified 01/11/21 22:10 Family History (Updated 01/12/21 @ 02:[address] Ofelia Mcguire MD) Mother Heart disease Hypertension Cancer Skin and thyroid CA. HLD (hyperlipidemia) Father HLD (hyperlipidemia) Hypertension Heart disease Diabetes Surgical History (Updated 01/12/21 @ 02:[address] Ofelia Mcguire MD) History of appendectomy History of back surgery S/P arthroscopic surgery of left knee Social History household members: spouse Smoking Status: Never smoker alcohol intake: current alcohol intake frequency: holidays/special occasions only substance use type: does not use Physical Exam Const alert, oriented x3 and no apparent distress General Appearance: cooperative Exam Limitations: no limitations HEENT normocephalic and head/scalp atraumatic Eyes PERRL and EOMs intact bilaterally Neck supple and No nodes Resp Auscultation: diminished lung sounds Cardio regular rate and regular rhythm GI normal to inspection, nondistended, normoactive bowel sounds Extremity no clubbing, cyanosis or edema Skin no rashes or lesions noted Neuro CN's II-XII intact bilaterally Medical Records Data Medical Nutrition Assessment Dietitian: Malnutrition Criteria Met Start: 01/12/21 10:38 Freq: Status: Active Protocol: Document 01/12/21 10:38 [facility] (Rec: 01/12/21 10:38 [facility] [id number]) Nutrition Malnutrition Evidence of Malnutrition Exists Yes Malnutrition (severe): Acute Illness/Injury Evidenced By Suboptimal Energy Intake ( Severe),Weight Loss (Severe) Clinical Problem Acute Disease or Injury Related Malnutrition Etiology related to COVID/ PNA, hypoxia Signs/Symptoms as evidenced by < 50% po intake of meals and 7.2% wt loss x 2 wks prior to admission Status Active Problem Recommendation Dietitian Recommendations/Changes Will continue liberal Regular diet Will provide ensure clear w/ meals for increased nutrition if consumed. Lab / Micro Data Result Diagrams: 01/12/21 07:05 01/12/21 07:05 Labs: Laboratory Results - last 24 hr 01/11/21 22:40: WBC 4.7, RBC 5.08, Hgb 14.2, Hct 45.1, MCV 88.8, MCH 28.0, MCHC 31.5 L, RDW Std Deviation 43.8, RDW Coeff of Rose Mary 13.3, Plt Count 189, MPV 10.2, Immature Gran % (Auto) 0.400, Neut % (Auto) 40.8 L, Lymph % (Auto) 48.8 H, Reynolds % (Auto) 6.4, Eos % (Auto) 3.4, Baso % (Auto) 0.2, Absolute Neuts (auto) 1.9 L, Absolute Lymphs (auto) 2.28, Nucleated RBC % 0 01/11/21 22:40: D-Dimer Quant (PE/DVT) 0.79 H* 01/11/21 22:40: Sodium 138, Potassium 3.7, Chloride 102, Carbon Dioxide 33.0 H, Anion Gap 3 L, BUN 13, Creatinine 0.85, Estim Creat Clear Calc 105.59, Est GFR (MDRD) Af Amer 97, Est GFR (MDRD) Non-Af 80, BUN/Creatinine Ratio 15.2, Glucose 125 H, Calcium 8.8 01/11/21 22:40: Phosphorus 2.7, Magnesium 2.2, Ferritin 288 H, Total Bilirubin 0.40, Direct Bilirubin 0.18, AST 37, ALT 71 H, Alkaline Phosphatase 87, Lactate Dehydrogenase 284 H, C-React Prot Ext Range 14.60 H, Total Protein 7.7, Albumin 3.2, Globulin 4.5 H 01/11/21 22:40: B-Natriuretic Peptide 10.3 01/11/21 22:40: Procalcitonin < 0.04 01/12/21 07:05: WBC 3.6 L, RBC 4.93, Hgb 13.8, Hct 43.7, MCV 88.6, MCH 28.0, MCHC 31.6 L, RDW Std Deviation 43.2, RDW Coeff of Rose Mary 13.2, Plt Count 218, MPV 10.3, Immature Gran % (Auto) 0.800, Neut % (Auto) 79.4 H, Lymph % (Auto) 17.3 L, Reynolds % (Auto) 2.2, Eos % (Auto) 0.0, Baso % (Auto) 0.3, Absolute Neuts (auto) 2.8, Absolute Lymphs (auto) 0.62 L, Nucleated RBC % 0 01/12/21 07:05: Sodium 137, Potassium 4.5, Chloride 103, Carbon Dioxide 26.0, Anion Gap 8, BUN 9, Creatinine 0.95, Estim Creat Clear Calc 94.47, Est GFR (MDRD) Af Amer 86, Est GFR (MDRD) Non-Af 71, BUN/Creatinine Ratio 9.5 L, Glucose 234 H, Calcium 8.5, Total Bilirubin 0.40, AST 40 H, ALT 70 H, Alkaline Annika sphatase 85, Total Protein 7.3, Albumin 3.0 L, Globulin 4.3 H, Albumin/Globulin Ratio 0.7 L Micro: Microbiology 01/12/21 04:50 Mucosa - Nose Respiratory Panel (PCR) - Final 01/12/21 04:00 Urine, Clean Catch Legionella Antigen - Final 01/12/21 04:00 Urine, Clean Catch Streptococcus pneumoniae Antigen (M - Final ABG Data ABG results: ABG 01/12/21 00:07 Specimen Type MEIR VBG pH 7.40 VBG pO2 32 VBG HCO3 29 H VBG Total CO2 31 VBG O2 Sat (Calc) 60 VBG Base Excess 4 H POC Mix VBG pCO2 Pt Tmp 47.3 O2 Delivery Device Room Air Rhythm Strip Rhythm Strip: Sinus Rhythm Rate: 86 Ectopy: None Radiology Impression Chest X-Ray 01/11/21 22:36 IMPRESSION: Diffuse bilateral interstitial and airspace opacities consistent with Covid pneumonia. Electronically Signed: Jun Marks MD at 23:08 EDT Tel , Service support , Chest CTA 01/11/21 23:26 IMPRESSION: Suboptimal opacification of the pulmonary arteries. There is no central or hilar pulmonary embolism, but the primary segmental and secondary subsegmental branches cannot be evaluated. If symptomatology persists, either a repeat study or V/Q scan should be considered. Pulmonary findings consistent with Covid pneumonia. Associated adenopathy. Recommend follow-up to resolution. Individualized dose optimization techniques were used for this CT. at 0030 Reported and signed by: Vignesh Dinero MD Electronically Signed: Vignesh Dinero MD at 0:29 EDT Tel , Service support ,
[2021-01-12 14:19] LABS: CPK Total, Creatine Kinase 54 U/L (26-192)
[2021-01-12] MEDS: lamoTRIgine 100 MG Tablet 200 MG PO (21:39)
--- NOTE | 2021-01-12 23:07 | PCS.PANDOC ---
PANDEMIC DOCUMENTATION INITIATED: Date: 01/01/2021 Time: 190
[2021-01-13 04:33] VITALS: BP 124/74; PULSE 78; RESP 18; TEMP 36.3; O2SAT 95
[2021-01-13 07:32] LABS: Mean Corp Hgb Conc 31.1 g/dL (32-36); Mean Corpuscular Hgb 27.8 pg (27.0-32.0); Mean Corpuscular Volume 89.3 fL (81-99); Mean Platelet Vol. 10.5 fl (6.2-12.0); Platelet Count 306 K/mm3 (150-450); RBC Distribution Width CV 13.5 % (11.6-14.6); RBC Distribution Width SD 44.1 fl (35.1-43.9); Red Blood Count 5.04 M/mm3 (4.2-5.4); White Blood Count 10.1 K/mm3 (4.4-11.0)
[2021-01-13 08:00] LABS: ALB/GLOB Ratio 0.7 RATIO (0.9-2.4); AST(SGOT) 104 U/L (15-37); Alanine Aminotransfer ALT/SGPT 134 U/L (13-56); Albumin, Serum 3.1 g/dL (3.2-5.0); Alkaline Phosphatase 88 U/L (45-117); Anion Gap 8 (5-15); BUN 16 mg/dL (7-18); BUN/Creat Ratio 18.8 RATIO (10-20); Calcium,Total 8.8 mg/dL (8.5-10.1); Chloride 105 mmol/L (98-107); Creatinine, Serum 0.85 mg/dL (0.55-1.02); EST Glomerular Filtration Rate 80 mL/min (>60); Est Glom Filt Rate - Afr Amer 97 mL/min (>60); Estimated Creatinine Clearance 105.59 ml/min; Globulin 4.5 g/dL (2.2-4.2); Glucose 146 mg/dL (74-106); Potassium 3.8 mmol/L (3.5-5.1); Protein, Total 7.6 g/dL (6.4-8.2); Sodium Level 138 mmol/L (136-145)
[2021-01-13 09:22] VITALS: BP 113/68; PULSE 89; RESP 20; TEMP 36.6; O2SAT 98
[2021-01-13] MEDS: dexAMETHasone 10 MG/ML Vial 6 MG IV (09:34)
[2021-01-13] MEDS: Famotidine 20 MG Tablet PO ×2 (09:36→21:50)
[2021-01-13] MEDS: Enoxaparin 40 MG/0.4 ML Syringe 30 MG SC ×2 (09:36→21:49)
[2021-01-13] MEDS: 0.9% Normal Saline 1,000 ML 100 ML IV ×2 (09:37→19:36)
--- NOTE | 2021-01-13 13:47 | PN.HOSP_ITS ---
Subjective Subjective Patient on 3 to 4 L of oxygen. Feels improvement in shortness of breath and wheezing. Objective Data Objective Data Vital Signs: Vital Signs Temp Pulse Resp BP Pulse Ox 97.8 F 89 20 H 113/68 98 01/13/21 09:22 01/13/21 09:22 01/13/21 09:22 01/13/21 09:22 01/13/21 09:22 Oxygen Flow Rate (L/min) 3 Oxygen Delivery Method Nasal Cannula Weight: 345 lb 10.957 oz Body Mass Index (BMI) 46.8 Intake & Output: Intake and Output for Last 24 Hours 01/11/21 01/12/21 01/13/21 23:59 23:59 23:59 Intake Total 4903.34 / 4903.34 1245 / 1245 Balance 4903.34 / 4903.34 1245 / 1245 Medical Nutrition Assessment Dietitian: Malnutrition Criteria Met Start: 01/12/21 10:38 Freq: Status: Active Protocol: Document 01/12/21 10:38 FER (Rec: 01/12/21 10:38 FER [id number]) Nutrition Malnutrition Evidence of Malnutrition Exists Yes Malnutrition (severe): Acute Illness/Injury Evidenced By Suboptimal Energy Intake ( Severe),Weight Loss (Severe) Clinical Problem Acute Disease or Injury Related Malnutrition Etiology related to COVID/ PNA, hypoxia Signs/Symptoms as evidenced by < 50% po intake of meals and 7.2% wt loss x 2 wks prior to admission Status Active Problem Recommendation Dietitian Recommendations/Changes Will continue liberal Regular diet Will provide ensure clear w/ meals for increased nutrition if consumed. Lab / Micro Data Result Diagrams: 01/13/21 06:57 01/13/21 06:57 Labs: Laboratory Results - last 24 hr 01/12/21 07:05: Total Creatine Kinase 54 01/13/21 06:57: WBC 10.1, RBC 5.04, Hgb 14.0, Hct 45.0, MCV 89.3, MCH 27.8, MCHC 31.1 L, RDW Std Deviation 44.1 H, RDW Coeff of Rose Mary 13.5, Plt Count 306, MPV 10.5 01/13/21 06:57: Sodium 138, Potassium 3.8, Chloride 105, Carbon Dioxide 25.0, Anion Gap 8, BUN 16, Creatinine 0.85, Estim Creat Clear Calc 105.59, Est GFR (MDRD) Af Amer 97, Est GFR (MDRD) Non-Af 80, BUN/Creatinine Ratio 18.8, Glucose 146 H, Calcium 8.8, Total Bilirubin 0.50, AST 104 H, ALT 134 H, Alkaline Phosphatase 88, Total Protein 7.6, Albumin 3.1 L, Globulin 4.5 H, Albumin/Globulin Ratio 0.7 L Micro: Microbiology 01/12/21 14:40 Sputum, Expectorated/Coughed Respiratory Culture - Preliminary Appears to be normal respiratory kishan. Further studies to follow. 01/12/21 04:50 Mucosa - Nose Respiratory Panel (PCR) - Final 01/12/21 04:00 Urine, Clean Catch Legionella Antigen - Final 01/12/21 04:00 Urine, Clean Catch Streptococcus pneumoniae Antigen (M - Final Rhythm Strip Rhythm Strip: Sinus Rhythm Rate: 86 Ectopy: None Physical Exam Narrative Physical exam General: Alert, Oriented x3, Cooperative HEENT: Atraumatic, PERRLA, EOMI, Normocephalic Oral: No Gingival or Mucosal Lesions/ Ulcerations Neck: Supple, No JVD, Negative Carotid Bruits Lungs: Air entry diminished in bilateral lung bases. Wheezing and crepitations resolved. Cardiovascular: Regular rate, Regular Rhythm, Normal S1, Normal S2, No murmurs Abdomen: Bowel Sounds Present, Soft, Non Tender, Non-Distended : No renal angle tenderness. No suprapubic tenderness. Extremities: No edema, Capillary Refill Less than 3 Seconds Skin: No rashes, No breakdown Musculoskeletal: No Tenderness to Palpation of Joints or Extremities Neurological: Cranial nerves II-XII grossly intact, DTR 2+/4 and Symmetrical, Neuro grossly intact Psych/Mental Status: Normal Affect, Appropriate. Assessment & Plan Assessment/Plan (1) Pneumonia due to 2019-nCoV: (2) Hypoxia: PLAN: The patient is a 35 y/o F with positive Covid test on 01/03/2021 at [facility] and symptoms since 01/02 admitted for shortness of breath and pleuritic chest pain. 1. Acute Hypoxia secondary to Bilateral Pneumonia secondary to COVID-19: Navin weiner admitted to [place] telemetry. Oxygen therapy. IV Decadron and remdesivir. ID consult reviewed and appreciated. On supportive treatment. Inflammatory markers CRP, ferritin, LDH and D-dimer elevated. Procalcitonin normal. VBG 7.40/mixed venous PCO2 47. I advised to complete the cycle of oral contraceptive pills and hold for next 2 cycles to prevent blood clot as OCPs are hypercoagulable. 01/13: Improvement in hypoxia and tachypnea. Continue PEP and incentive spirometry. Anticipate discharge tomorrow a.m. 2. Bipolar disorder: continue patient home lamotrigine regimen. 3. Obesity: Weight loss and lifestyle changes encouraged. 4. DVT prophylaxis: SCDs, Lovenox. Charges/Coding Visit Charges Inpatient E&M: 37387 Subs Hosp L2
[2021-01-13 15:11] VITALS: BP 119/63; PULSE 85; RESP 18; TEMP 36.6; O2SAT 97
[2021-01-13 19:37] VITALS: BP 131/73; PULSE 81; RESP 18; TEMP 37; O2SAT 94
[2021-01-13] MEDS: lamoTRIgine 100 MG Tablet 200 MG PO (21:50)
[2021-01-14 02:01] VITALS: BP 107/62; PULSE 81; RESP 18; TEMP 36.8; O2SAT 95
[2021-01-14 06:34] LABS: Hematocrit 40.7 % (37-47); Hemoglobin 12.2 g/dL (12.0-15.0); Mean Corpuscular Hgb 28.2 pg (27.0-32.0); Mean Platelet Vol. 9.9 fl (6.2-12.0); Platelet Count 230 K/mm3 (150-450); RBC Distribution Width CV 13.5 % (11.6-14.6); RBC Distribution Width SD 46.5 fl (35.1-43.9); Red Blood Count 4.33 M/mm3 (4.2-5.4); White Blood Count 8.2 K/mm3 (4.4-11.0)
[2021-01-14 07:27] LABS: ALB/GLOB Ratio 0.7 RATIO (0.9-2.4); AST(SGOT) 49 U/L (15-37); Alanine Aminotransfer ALT/SGPT 112 U/L (13-56); Albumin, Serum 2.6 g/dL (3.2-5.0); Alkaline Phosphatase 63 U/L (45-117); Anion Gap 8 (5-15); BUN 16 mg/dL (7-18); BUN/Creat Ratio 24.1 RATIO (10-20); Calcium,Total 7.8 mg/dL (8.5-10.1); Chloride 109 mmol/L (98-107); Creatinine, Serum 0.66 mg/dL (0.55-1.02); EST Glomerular Filtration Rate 106 mL/min (>60); Est Glom Filt Rate - Afr Amer 129 mL/min (>60); Estimated Creatinine Clearance 135.99 ml/min; Globulin 3.5 g/dL (2.2-4.2); Glucose 131 mg/dL (74-106); Potassium 4.1 mmol/L (3.5-5.1); Protein, Total 6.1 g/dL (6.4-8.2); Sodium Level 140 mmol/L (136-145)
[2021-01-14 07:33] VITALS: O2SAT 93
[2021-01-14] MEDS: 0.9% Normal Saline 1,000 ML 100 ML IV (07:37)
--- NOTE | 2021-01-14 08:39 | PCM.DC ---
Discharge Instructions Diet Discharge Diet: Low fat / Low cholesterol and 2000 mg Sodium Diet Activity Discharge Activity: Return to Normal Activity and May Not Drive Additional Activity Instructions:: 20-day quarantine. Starting from 01/02, January 22, 2021 Dressing / Incision Call your doctor if you observe: Fever of 101 or Higher, Coldness, Increased Pain, Numbness or Tingling, Change in Color, Inability to urinate, Inability to have a bowel movement, Using more than 1 pad per hour, Shortness of breath, Dizziness, Fainting spells, Swelling in the ankles, Chest pain, Prolonged hiccupping, Increased palpitations (irregular heartbeat), Calf discomfort and Uncontrolled pain Follow Up Care Test Results: Test results from this visit will be discussed in further detail at your follow-up appointment, if applicable. Discharge Plan Admission Admit Date/Time: 01/12/21 01:55 Primary Reason for Your Visit: Bilateral COVID-19 pneumonia with hypoxia Attending Provider: Ralph Dominique Primary Care Provider: Care Physician,No Primary Consulting Providers: Sean Ramos Instructions Patient Instructions: Coronavirus Disease 2019 (COVID-19): Caring for Yourself or Others Additional Instructions / Restrictions: Might need oxygen during exertion or climbing stairs. Discharge Orders/Prescriptions Prescriptions: New dexamethasone 6 mg tablet 6 mg PO DAILY Qty: 7 RF: 0 Eliquis 2.5 mg tablet 2.5 mg PO BID Qty: 60 RF: 0 Continued lamotrigine 200 mg Tablet 200 mg PO QHS RF: 0 levonorgestrel-ethinyl estrad 0.1-20 mg-mcg tablet 1 tab PO DAILY Qty: 0 RF: 0 Referrals / Follow Up: Sean Ramos MD [STAFF PHYSICIAN] - Within 1 Month (As needed if shortness of breath.) Care Physician,No Primary [Primary Care Provider] - Disposition Disposition (needs filled in before D/C Order can be placed): Home, Self Care
--- NOTE | 2021-01-14 08:46 | PCM.DC.SUM ---
Providers Date of Admission: 01/12/21 Primary Care Physician: No Primary Care Phys Consultations 01/12/21 07:47 Consult: Infectious Disease Routine Consulting Provider: Sean Ramos Reason for Consult: covid 19 Pneumonia EMERGENT Consult: No MD Notified: Yes Date Notified: 01/12/21 Time Notified: 08:57 Method of Notification: Text Reason For Visit: COVID PNA, HYPOXIA Diagnosis Discharge Diagnosis (1) Pneumonia due to 2019-nCoV: Status: Acute Code(s): U07.1 - COVID-19; J12.82 - Pneumonia due to coronavirus disease 2019 (2) Hypoxia: Status: Acute Code(s): R09.02 - Hypoxemia Medications at Discharge Home Medications lamotrigine 200 mg PO QHS 01/11/21 apixaban [Eliquis] 2.5 mg PO BID #60 tab 01/14/21 dexamethasone 6 mg PO DAILY #7 tab 01/14/21 levonorgestrel-ethinyl estrad 1 tab PO DAILY #0 tab 01/14/21 pseudoephedrine-guaifenesin [Mucus Relief D (pseudoephed)] 1 tab PO BID #14 tab 01/14/21 Hospital Course Summary of Care Provided Hospital Course: This 35-year-old morbidly obese female admitted with dyspnea, pleuritic chest pain and hypoxia. Was positive of COVID-19 on 01/03 related symptoms started on 01/02. 1. Acute Hypoxia secondary to Bilateral Pneumonia secondary to COVID-19: Patient was admitted to [place] telemetry. Oxygen therapy. Started on IV Decadron and remdesivir. ID consult reviewed and appreciated. On supportive treatment. Inflammatory markers CRP, ferritin, LDH and D-dimer elevated. Procalcitonin normal. VBG 7.40/mixed venous PCO2 47. I advised to complete the cycle of oral contraceptive pills and hold for next 2 cycles to prevent blood clot as OCPs are hypercoagulable. There was improvement in hypoxia and tachypnea. Continue PEP and incentive spirometry. Prescription for Mucinex D, Eliquis and dexamethasone given. Currently 95% on room air. Home oxygen qualification assessment in case if she needs daily exertion. 2. Bipolar disorder: continue patient home lamotrigine regimen. 3. Obesity: Weight loss and lifestyle changes encouraged. 4. DVT prophylaxis: SCDs, Lovenox. Physical Exam Narrative Physical exam Patient is on room air. Afebrile. Mild cough, dry cough. General: Alert, Oriented x3, Cooperative HEENT: Atraumatic, PERRLA, EOMI, Normocephalic Oral: No Gingival or Mucosal Lesions/ Ulcerations Neck: Supple, No JVD, Negative Carotid Bruits Lungs: Air entry diminished in bilateral lung bases. Lungs are clear. Cardiovascular: Regular rate, Regular Rhythm, Normal S1, Normal S2, No murmurs Abdomen: Bowel Sounds Present, Soft, Non Tender, Non-Distended : No renal angle tenderness. No suprapubic tenderness. Extremities: No edema, Capillary Refill Less than 3 Seconds Skin: No rashes, No breakdown Musculoskeletal: No Tenderness to Palpation of Joints or Extremities Neurological: Cranial nerves II-XII grossly intact, DTR 2+/4 and Symmetrical, Neuro grossly intact Psych/Mental Status: Normal Affect, Appropriate. Medical Records Data Medical Nutrition Assessment Dietitian: Malnutrition Criteria Met Start: 01/12/21 10:38 Freq: Status: Active Protocol: Document 01/12/21 10:38 FER (Rec: 01/12/21 10:38 [facility] [id number]) Nutrition Malnutrition Evidence of Malnutrition Exists Yes Malnutrition (severe): Acute Illness/Injury Evidenced By Suboptimal Energy Intake ( Severe),Weight Loss (Severe) Clinical Problem Acute Disease or Injury Related Malnutrition Etiology related to COVID/ PNA, hypoxia Signs/Symptoms as evidenced by < 50% po intake of meals and 7.2% wt loss x 2 wks prior to admission Status Active Problem Recommendation Dietitian Recommendations/Changes Will continue liberal Regular diet Will provide ensure clear w/ meals for increased nutrition if consumed. Weight / BMI Weight Weight: 352 lb 11.834 oz Body Mass Index (BMI) 46.8 ABG / Lab / Microbiology Data Result Diagrams: 01/14/21 06:00 01/14/21 06:00 Laboratory: Laboratory Results - last 24 hr 01/14/21 06:00: WBC 8.2, RBC 4.33, Hgb 12.2, Hct 40.7, MCV 94.0 D, MCH 28.2, MCHC 30.0 L, RDW Std Deviation 46.5 H, RDW Coeff of Rose Mary 13.5, Plt Count 230, MPV 9.9 01/14/21 06:00: Sodium 140, Potassium 4.1, Chloride 109 H, Carbon Dioxide 23.0, Anion Gap 8, BUN 16, Creatinine 0.66, Estim Creat Clear Calc 135.99, Est GFR (MDRD) Af Amer 129, Est GFR (MDRD) Non-Af 106, BUN/Creatinine Ratio 24.1 H, Glucose 131 H, Calcium 7.8 L, Total Bilirubin 0.20, AST 49 H, ALT 112 H, Alkaline Phosphatase 63, Total Protein 6.1 L, Albumin 2.6 L, Globulin 3.5, Albumin/Globulin Ratio 0.7 L Microbiology: Microbiology 01/12/21 14:40 Sputum, Expectorated/Coughed Gram Stain - Final 01/12/21 14:40 Sputum, Expectorated/Coughed Respiratory Culture - Preliminary Appears to be normal respiratory kishan. Further studies to follow. 01/12/21 04:50 Mucosa - Nose Respiratory Panel (PCR) - Final 01/12/21 04:00 Urine, Clean Catch Legionella Antigen - Final 01/12/21 04:00 Urine, Clean Catch Streptococcus pneumoniae Antigen (M - Final D/C Instructions Discharge Diet: Low fat / Low cholesterol and 2000 mg Sodium Diet Additional Activity Instructions: 20-day quarantine. Starting from 01/02, January 22, 2021 Call your doctor if you observe: Fever of 101 or Higher, Coldness, Increased Pain, Numbness or Tingling, Change in Color, Inability to urinate, Inability to have a bowel movement, Using more than 1 pad per hour, Shortness of breath, Dizziness, Fainting spells, Swelling in the ankles, Chest pain, Prolonged hiccupping, Increased palpitations (irregular heartbeat), Calf discomfort and Uncontrolled pain Meaningful Use Info Meaningful Use Diagnoses (Choose all that apply): None applicable Discharge Plan Admission Admit Date/Time: 01/12/21 01:55 Primary Reason for Your Visit: Bilateral COVID-19 pneumonia with hypoxia Attending Provider: Ralph Dominique Primary Care Provider: Care Physician,No Primary Consulting Providers: Sean Ramos Instructions Patient Instructions: Coronavirus Disease 2019 (COVID-19): Caring for Yourself or Others Additional Instructions / Restrictions: Might need oxygen during exertion or climbing stairs. Discharge Orders/Prescriptions Prescriptions: New dexamethasone 6 mg tablet 6 mg PO DAILY Qty: 7 RF: 0 Eliquis 2.5 mg tablet 2.5 mg PO BID Qty: 60 RF: 0 pseudoephedrine-guaifenesin [Mucus Relief D (pseudoephed)] 60-600 mg tablet extended release 12 hr 1 tab PO BID Qty: 14 RF: 0 Continued lamotrigine 200 mg Tablet 200 mg PO QHS RF: 0 levonorgestrel-ethinyl estrad 0.1-20 mg-mcg tablet 1 tab PO DAILY Qty: 0 RF: 0 Referrals / Follow Up: Sean Ramos MD [STAFF PHYSICIAN] - Within 1 Month (As needed if shortness of breath.) Care Physician,No Primary [Primary Care Provider] - Disposition Disposition (needs filled in before D/C Order can be placed): Home, Self Care Charges/Coding Visit Charges Inpatient E&M: 64549 [facility] Hosp
[2021-01-14 11:40] VITALS: BP 104/59; PULSE 78; RESP 18; TEMP 36.8; O2SAT 95
[2021-01-14] MEDS: dexAMETHasone 10 MG/ML Vial 6 MG IV (11:47)
[2021-01-14] MEDS: Famotidine 20 MG Tablet PO (11:49)
[2021-01-14] MEDS: Enoxaparin 40 MG/0.4 ML Syringe 30 MG SC (11:49)
[2021-01-14 11:53] VITALS: O2SAT 88; O2SAT 92; O2SAT 95
--- NOTE | 2021-01-15 14:44 | CASEMGMT ---
Addendum entered by Char Villa 01/15/21 15:15: Received tc back from pt who states she needs a prior auth for the eliquis. TC to [employer] and received insurance phone number. . TC to insurance, spoke with Sasha and obtained prior auth. TC back to pt to make aware. Pt also aware that her dosage does not qualify for the savings card. Pt thankful and will call ROGER WINN back if she has any further issues with the med. Original Note: ROGER GILLIAM Follow Up Phone Call: Call Date: 01/15/21 Discharge Date: 01/14/21 Time of Call:1440 Duration:4 min Admitting Dx: TAWANA DURAN CM completed follow up phone call after recent hospitalization. Pt states she is doing well and she is figuring out the O2. She states she is using this when she is up and about. Pt states she is quarantining and her family is able to bring her groceries and supplies. She states she was able to get her decadron but [facility] did not have the apixaban. She states her is at the pharmacy now. She states she did not get a savings card upon dc. Asked her if [facility] does not have the med if they can transfer the script to a pharmacy who does have it. She states she will talk to her about this. Gave pt this ROGER WINN phone number in case medication is too expensive or she is unable to get it filled. Pt state she will call CM if she has any difficulites. Pt states she has not yet looked at the local directory for PCP's but has called 's office for a follow up appt. She was told that her paperwork has not been received by their office yet and to call back in a couple of days. Pt denies further questions or concerns.
== END 2021-01-14 16:30 | disposition home or self-care (01) | DRG 177 ==
LOC: ED 01-12 01:36 → MS3 01-12 02:00
PROVIDERS: Internal Medicine Infectious Disease; Admitting Provider Family Medicine; Emergency Provider Emergency Medicine; Visit Provider Internal Medicine
DX: U07.1 COVID-19 (principal); J12.82 Pneumonia due to coronavirus disease 2019; Z68.42 Body mass index [BMI] 45.0-49.9, adult; R09.02 Hypoxemia; F31.9 Bipolar disorder, unspecified; E66.01 Morbid (severe) obesity due to excess calories
CPT/HCPCS: 36415; 71045; 71275; 80048; 80053; 80076; 82550; 82728; 82803; 83615; 83735; 83880; 84100; 84145; 85025; 85027; 85379; 86140; 87070; 87205; 87449; 87633; 93005; 94762; 97802; 99251; 99283; J7030; J7050; Q9967; G0463

== ENCOUNTER → 2022-02-18 | Outpatient (CLI) | payer OTHER, SELFPAY ==
--- NOTE | 2022-02-18 11:30 | RAD_ITS ---
HISTORY: SPONDYLOSIS L/S REGION. TECHNIQUE: XR Spine Lumbar 2 or 3 Views. COMPARISON: None. FINDINGS: VERTEBRAE: Vertebral body heights preserved. Posterior elements appear intact. ALIGNMENT: No significant anterior or posterior subluxation. INTERVERTEBRAL DISCS: Intervertebral disc space narrowing with osteophytes and endplate sclerosis at L4-5. RAD/Lumbar Spine 2 or 3 Views IMPRESSION: No acute fracture or dislocation identified in the lumbar spine. L4-5 spondylosis. Electronically Signed: Dagmar Martinez MD at 11:45 EDT ,
== END | disposition home or self-care (01) ==
LOC: RAD 11:17
PROVIDERS: PCP Nurse Practitioner Family; Referring Provider Anesthesiology Pain Medicine; Visit Provider Anesthesiology Pain Medicine
DX: M47.817 Spondylosis without myelopathy or radiculopathy, lumbosacral region (principal)
CPT/HCPCS: 72100

== ENCOUNTER 2023-12-05 07:00 | Outpatient (RCR) | payer OTHER, SELFPAY | END 2023-12-05 19:00 | disposition home or self-care (01) | LOC: PT 07:00 | PROVIDERS: PCP Nurse Practitioner Family; Visit Provider Student in an Organized Health Care Education/Training Program | DX: M72.2 Plantar fascial fibromatosis (principal) | CPT/HCPCS: 97035; 97110; 97140; 97162 ==